=== PATIENT | female | born 1965 | race Two or more races ===

== ENCOUNTER 2019-03-15 06:54 | Day surgery (SDC) | payer OTHER ==
[2019-03-15] MEDS ORDERED: FENTAnyl 50 MCG/ML VIAL (08:25)
[2019-03-15] MEDS ORDERED: PROPOFOL 20 ML (08:25)
[2019-03-15] MEDS ORDERED: LIDOCAINE 100 MG SYRINGE (08:25)
== END 2019-03-15 10:39 | disposition home or self-care (01) ==
LOC: GIL 06:54
DX: K29.50 Unspecified chronic gastritis without bleeding (principal)
CPT/HCPCS: 43239; 88305; 88312